=== PATIENT | female | born 1985 | race Caucasian/White ===

== ENCOUNTER 2022-05-24 09:46 | Day surgery (SDC) | payer BC ==
[2022-05-24] MEDS ORDERED: Propofol 200 MG/20 ML SDV IV ONE (09:47)
[2022-05-24] MEDS ORDERED: Lactated Ringers 1,000 ML IV SCH (10:00)
[2022-05-24] MEDS ORDERED: Sodium Chloride 0.9% 10 ML Syringe FLUSH PRN (10:00)
[2022-05-24] MEDS ORDERED: Propofol 200 MG/20 ML SDV ONE ×3 (11:31→11:58)
[2022-05-24] MEDS ORDERED: Midazolam 1 MG/ML 2 ML SDV ONE (11:31)
== END 2022-05-24 14:20 | disposition home or self-care (01) ==
LOC: KA.SDS 09:46
PROVIDERS: ATTEND Family Medicine
DX: K92.1 Melena (principal); R19.7 Diarrhea, unspecified; G47.33 Obstructive sleep apnea (adult) (pediatric); E78.5 Hyperlipidemia, unspecified; J45.909 Unspecified asthma, uncomplicated; F41.8 Other specified anxiety disorders; E66.01 Morbid (severe) obesity due to excess calories; Z79.899 Other long term (current) drug therapy; Z88.0 Allergy status to penicillin; Z88.5 Allergy status to narcotic agent; Z88.1 Allergy status to other antibiotic agents; Z68.42 Body mass index [BMI] 45.0-49.9, adult
CPT/HCPCS: 00811; J2250; J2704; J7120